=== PATIENT | male | born 1955 | race Two or more races ===

== ENCOUNTER 2016-11-08 11:46 | Day surgery (SDC) | payer OTHER ==
[2016-11-07 16:02] VITALS: BMI 30.8
[2016-11-08] VITALS (17 sets, daily range): BP systolic 121–147; BP diastolic 75–94; PULSE 63–78; RESP 8–29; Ht 172.7 cm; Wt 89.0 kg
[~2016-11-08] VITALS: Ht 172.7 cm; Wt 89.0 kg
[2016-11-08] MEDS ORDERED: FENTAnyl 50 MCG/ML VIAL IV PRN (12:00)
[2016-11-08] MEDS ORDERED: DIPHENHYDRAMINE 50 MG INJ IV PRN (12:00)
[2016-11-08] MEDS ORDERED: OXYCODONE/ACETAMINOPHEN (5/325) TAB PO PRN ×2 (12:00)
[2016-11-08] MEDS ORDERED: PROCHLORPERAZINE 10 MG INJ IV PRN (12:00)
[2016-11-08] MEDS ORDERED: KETOROLAC 30 MG INJ IV ONE (12:00)
[2016-11-08] MEDS ORDERED: MEPERIDINE 25 MG INJ IV PRN (12:00)
[2016-11-08] MEDS ORDERED: ONDANSETRON 4 MG INJ IV PRN (12:00)
[2016-11-08] MEDS ORDERED: ASPI-664 PO (12:23)
[2016-11-08] MEDS ORDERED: PRAV40TA76 PO (12:28)
[2016-11-08] MEDS ORDERED: LISI40TA9 PO (12:28)
[2016-11-08] MEDS ORDERED: OMEP20CA16 PO (12:29)
[2016-11-08] MEDS ORDERED: D-ME473S2 PO (12:29)
[2016-11-08] MEDS ORDERED: MIDAZOLAM 1 MG/ML 2 ML INJ ONE (12:57)
[2016-11-08 13:32] LABS: ADD SCAN DIFF NO
[2016-11-08 13:33] LABS: BASOPHILS % 0.5 % (0.0-2.0); EOSINOPHILS # 0.1 10^3/ul (0.0-0.5); EOSINOPHILS % 1.3 % (0.0-7.0); HEMATOCRIT 41.7 % (42.0-52.0); HEMOGLOBIN 14.6 g/dl (14.0-18.0); LYMPHOCYTES % 36.5 % (15.0-51.0); MEAN CORPUSCULAR HEMOGLOBIN 31.9 pg (29.0-33.0); MEAN CORPUSCULAR VOLUME 91.2 fl (82.0-101.0); MEAN PLATELET VOLUME 10.8 fl (7.4-10.4); MONOCYTE # 0.3 10^3/ul (0.3-0.9); NEUTROPHIL # 3.1 10^3/ul (1.6-7.5); NEUTROPHILS % 55.3 % (39.0-77.0); PLATELET COUNT 202 10^3/UL (140-415); RED BLOOD COUNT 4.57 10^6/ul (4.70-6.10); RED CELL DISTRIBUTION WIDTH 13.5 % (11.5-14.5); WHITE BLOOD COUNT 5.5 10^3/ul (4.8-10.8)
[2016-11-08 13:49] LABS: INR 0.92; PROTIME 12.4 Sec (12.2-14.2)
[2016-11-08 13:50] LABS: PARTIAL THROMBOPLASTIN TIME 29.2 Sec (25.0-35.0)
[2016-11-08 13:53] LABS: ALBUMIN 4.3 g/dl (3.3-4.9); ALBUMIN/GLOBULIN RATIO 1.59; BILIRUBIN,INDIRECT 0.4 mg/dl (0-1.1); BILIRUBIN,TOTAL 0.4 mg/dl (0.2-1.3)
[2016-11-08] MEDS ORDERED: SOD CHLORIDE 0.9% 1,000 ML IV SCH (14:00)
[2016-11-08] MEDS ORDERED: CEFAZOLIN 2 GM/50 ML (PMX) 50 ML IVPB ONE (14:00)
[2016-11-08 14:06] LABS: CALCIUM 8.8 mg/dl (8.4-10.2); CREATININE 0.78 mg/dl (0.61-1.24); POTASSIUM 3.9 mmol/L (3.5-5.1)
[2016-11-08] MEDS ORDERED: BUPIVACAINE 0.25% (MPF) 30 ML INJ ONE (15:01)
[2016-11-08] MEDS ORDERED: PROPOFOL 20 ML ONE (15:10)
[2016-11-08] MEDS ORDERED: LIDOCAINE 2% (SDV) 5 ML INJ ONE (15:10)
[2016-11-08] MEDS ORDERED: CEFAZOLIN 1 GM INJ ONE (15:16)
[2016-11-08] MEDS ORDERED: HYDROmorphONE 2 MG/ML SYG ONE (15:20)
[2016-11-08] MEDS ORDERED: METOCLOPRAMIDE 10 MG INJ ONE (15:24)
[2016-11-08] MEDS ORDERED: ONDANSETRON 4 MG INJ ONE (15:24)
[2016-11-08] MEDS ORDERED: EPHEDrine SULFATE 50 MG/5 ML SYG ONE (15:34)
--- NOTE | 2016-11-08 15:44 | OPR ---
Date/Time of Note Date/Time of Note DATE: 11/08/16 TIME: 15:43 Operative Report Procedure Date: Nov 08, 2016 Preoperative Diagnosis right arm tumor Postoperative Diagnosis same Operation Performed radical resection of right arm tumor with 15 x 10 cm tumor 11 cm incision localized adjacent transfer with the use of skin flaps 88 sq cm defect Surgeon: Cruz LEGGETT Specimens right arm tumor Cruz LEGGETT Nov 08, 2016 15:44
[2016-11-08] MEDS ORDERED: HYDROCODONE/APAP (5/325) TAB PO ONE (16:00)
--- NOTE | 2016-11-08 16:11 | OPR ---
DATE OF OPERATION: 11/08/2016 INDICATION: This is a 61-year-old male with a very large right arm tumor. He requests surgical exc ision. The risks, alternatives, benefits, and personnel were discussed with the patient. The patie nt expressed understanding and consented to the operation. PREOPERATIVE DIAGNOSIS: Right arm tumor. POSTOPERATIVE DIAGNOSIS: Right arm tumor. OPERATION PERFORMED: 1. Radical resection of right arm tumor with a 15 x 10-cm size tumor and an 11-cm size incision. 2. Localized adjacent tissue transfer with the use of skin flaps, with an 88-square cm defect. SURGEON: Landen Cagle MD SPECIMEN: Right arm tumor. COMPLICATIONS: None. ANESTHESIA: General. DESCRIPTION OF PROCEDURE: The patient was taken to the OR and prepped and draped in the usual steri le fashion. A surgical timeout was performed. IV antibiotics were given. A transverse incision wa s made with a 15 blade over the right arm tumor. Dissection cautery was carried down to the tumor a nd circumferentially around the tumor, which reached all the way down to the right arm muscle layer, there was good hemostasis. Due to the large tissue defect, a localized adjacent tissue transfer wi th the use of skin flaps was performed. Multilevel closure with interrupted 3-0 Vicryl and skin sta ples. Local anesthesia was injected. Dry dressings were applied. Dictated By: LANDEN TOLBERT/FABIANO Conf#: [id number] DID#: [id number]
--- NOTE | 2016-11-08 17:46 | RADRPT ---
Vent Rate: 60 bpm RR Interval: 0 msec RI Interval: 158 msec QRS Duration: 86 msec QT Interval: 428 msec QTC Interval: 428 msec P-R-T [place]: 42 - -6 - -52 degrees Normal sinus rhythm ST and T wave abnormality, consider anterior ischemia Abnormal ECG Electronically Signed By: Kimani Torres [id number]
== END 2016-11-08 17:36 | disposition home or self-care (01) ==
LOC: SDS 11:46
PROVIDERS: ATTEND Surgery
DX: D17.21 Benign lipomatous neoplasm of skin and subcutaneous tissue of right arm (principal); I10 Essential (primary) hypertension; E78.5 Hyperlipidemia, unspecified; E11.9 Type 2 diabetes mellitus without complications; E66.9 Obesity, unspecified; Z68.30 Body mass index [BMI] 30.0-30.9, adult
CPT/HCPCS: 14301; 14302; 80053; 85025; 85610; 85730; 88307; 93005; J0690; J1170; J2250; J2405; J2765; Z7512; Z7610

== ENCOUNTER 2018-08-10 15:30 | Emergency (ER) | payer SELFPAY ==
[~2018-08-10] VITALS: Ht 172.7 cm; Wt 96.0 kg
[~2018-08-10 15:30] MED LIST: ASPI-817 PO; D-ME473S2 PO; LISI40TA3 PO; OMEP20CA16 PO; PRAV40TA76 PO
[2018-08-10 15:33] VITALS: Ht 172.7 cm; Wt 96.0 kg
[2018-08-10] MEDS ORDERED: HYDROCODONE/APAP (5/325) TAB PO ONE (17:00)
[2018-08-10] MEDS ORDERED: DIPHTH/TET/ACEL PERTUSS (ADULT) 0.5 ML VIAL IM* ONE (18:30)
[2018-08-10] MEDS ORDERED: ACET500C5 PO (18:36)
[2018-08-10] MEDS ORDERED: CEPH-443 PO (18:38)
[2018-08-10 18:45] VITALS: BP 159/92; PULSE 88; RESP 16
--- NOTE | 2018-08-10 19:39 | ERD ---
ER Documentation Chief Complaint Chief Complaint L lateral pinky laceration 1 wk ago HPI 62-year-old male patient with a past medical history of hypertension, hyperlipidemia presents to ED complaining of a laceration sustained on his left lateral pinky finger about 1 week ago. States that he was trying to fix his car under the [place], actually cut himself with a metal piece. Reports he is unsure if he is up-to-date with his tetanus vaccine. Denies any fever, loss of sensation, loss of range of motion, nausea, vomiting, chills, increased redness or swelling. Patient is right-handed. ROS All systems reviewed and are negative except as per history of present illness. Medications Home Meds Active Scripts Cephalexin* (Keflex*) 500 Mg Capsule, 500 MG PO QID for 7 Days, CAP Prov:LAN WATSON PA-C 08/10/18 Acetaminophen* (Tylophen*) 500 Mg Capsule, 1 CAP PO Q6H PRN for PAIN AND OR ELEVATED TEMP, #20 CAP Prov:LAN WATSON PA-C 08/10/18 Reported Medications Dextromethorphan Hb-Promethazine Hcl* (Promethazine DM* Syrup) 473 Ml Syrup, 5 ML PO Q6 PRN for COUGH, ML 11/08/16 Omeprazole* (Omeprazole*) 20 Mg Capsule.dr, 20 MG PO DAILY, #30 CAP 11/08/16 Lisinopril* (Lisinopril*) 40 Mg Tablet, 40 MG PO DAILY, #30 TAB 11/08/16 Pravastatin Sodium* (Pravastatin Sodium*) 40 Mg Tablet, 40 MG PO HS, TAB 11/08/16 Aspirin* (Aspirin* EC) 81 Mg Tablet.dr, 81 MG PO DAILY, TAB 11/08/16 Allergies Allergies: Coded Allergies: No Known Drug Allergies (Unverified Allergy, Unknown, 11/07/16) PMhx/Soc History of Surgery: Yes (RIGHT HAND SX ) Anesthesia Reaction: No Hx Neurological Disorder: No Hx Respiratory Disorders: No Hx Cardiac Disorders: Yes (HTN) Hx Psychiatric Problems: No Hx Miscellaneous Medical Probl: Yes Hx Alcohol Use: Yes Hx Substance Use: Yes Hx Tobacco Use: Yes Smoking Status: Current every day smoker FmHx Family History: No diabetes, No coronary disease Physical Exam Vitals Vital Signs Date Temp Pulse Resp B/P (MAP) Pulse Ox O2 O2 Flow FiO2 Time Delivery Rate 08/10/18 98.4 89 18 178/105 98 15:33 (129) Physical Exam Const: [id number], well-nourished. In no acute distress. Head: Atraumatic, normocephalic Eyes: Normal Conjunctiva without injection ENT: Normal external ear, nose and mouth. Neck: Full range of motion. No meningismus. Resp: Clear to auscultation bilaterally. No wheezing, rhonchi, rales, or crackles. No accessory muscle use. No retractions. Cardio: Regular rate and rhythm, no murmurs Skin: No petechiae or rashes Back: No midline tenderness. No CVA tenderness. Ext: No cyanosis, or edema. Cap refill less than 2 seconds. Distal pulses intact bilaterally. 3 cm skin avulsion noted on the lateral dorsal aspect of patient's left pinky, fifth finger. Full range of motion of the DIP, PIP, MCP joints bilaterally. Neur: Awake and alert. Normal gait and coordination. Muscle strength 5/5. Sensation intact bilaterally. Psych: Normal Mood and Affect Results 24 hrs Current Medications Medications Dose Sig/Margarita Start Time Status Last (Trade) Ordered Route PRN Stop Time Admin Dose Reason Admin 1 tab ONCE ONCE 08/10/18 DC 08/10/18 Acetaminophen PO 17:00 08/10/18 17:10 / 17:01 Hydrocodone Bitart (Agency (5/325)) Diphtheria/ 0.5 ml ONCE ONCE 08/10/18 DC 08/10/18 Tetanus/Acell IM* 18:30 08/10/18 18:25 Pertussis 18:31 (Adacel) Procedures/MDM 62-year-old male patient with a past medical history of hypertension, hyperlipid emia presents to ED complaining of left pinky skin avulsion that started 1 week ago after fixing his car. Patient is afebrile and nontoxic-appearing. Patient's blood pressure is 178/105. Blood Pressure Assessment: Patient's blood pressure was elevated (>120/80) but appears stable without evidence of hypertension emergency or urgency. The patient was counseled about the risks of hypertension and urged to pursue outpatient monitoring and therapy within a week with their primary care physician. After treating patient's pain with Agency 5- 325 mg, 159/92 with patient's new blood pressure. Patient gave consent to perform laceration repair. Laceration Repair by me: Anesthesia: None Location: [Left 5th pinky finger] Tendon/Joint/Nerves: No injury Foreign body: None detected after copious irrigation and exploration Technique: Dermabond on the distal are where epidermis was still able to approximate Complexity: No subcutaneous sutures/mucosal repair/edge excision Post Closure Length: [3] cm Patient's bleeding was easily controlled in the department and there is no indication of anemia. Tdap updated. Patient is neurovascularly intact. No evidence of compartment syndrome, neurologic injury, vascular injury, open joint, tendon laceration, or foreign body. Patient is appropriate for outpatient follow up. 48 hour wound check. Scar minimization instructions given. Keflex was prescribed to patient for infection prevention. Instructed patient to return to the ED sooner for any worsening symptoms. Follow up with primary care physician in 1-2 days. Patient's questions were answered. Patient understood and agreed with discharge plan. Departure Diagnosis: Primary Impression: Finger laceration Encounter type: initial encounter Finger: unspecified finger Damage to nail status: unspecified Foreign body presence: unspecified Laterality: left Qualified Codes: S61.219A - Laceration without foreign body of unspecified finger without damage to nail, initial encounter Condition: Stable Patient Instructions: Laceration, Hand, Laceration, Extremity (Skin Glue), Skin Avulsion Referrals: [facility] [place] YOU HAVE RECEIVED A MEDICAL SCREENING EXAM AND THE RESULTS INDICATE THAT YOU DO NOT HAVE A CONDITION THAT REQUIRES URGENT TREATMENT IN THE EMERGENCY DEPARTMENT. FURTHER EVALUATION AND TREATMENT OF YOUR CONDITION CAN WAIT UNTIL YOU ARE SEEN IN YOUR DOCTORS OFFICE WITHIN THE NEXT 1-2 DAYS. IT IS YOUR RESPONSIBILITY TO MAKE AN APPOINTMENT FOR FOL- CARE. IF YOU HAVE A PRIMARY DOCTOR --you should call your primary doctor and schedule an appointment IF YOU DO NOT HAVE A PRIMARY DOCTOR YOU CAN CALL OUR PHYSICIAN REFERRAL HOTLINE AT IF YOU CAN NOT AFFORD TO SEE A PHYSICIAN YOU CAN CHOSE FROM THE FOLLOWING [facility] CLINICS [facility] [address] [facility] [address] [facility] [address] [facility] [address] [facility] [address] [facility]. [facility] [address] [facility]. [facility] YOU HAVE RECEIVED A MEDICAL SCREENING EXAM AND THE RESULTS INDICATE THAT YOU DO NOT HAVE A CONDITION THAT REQUIRES URGENT TREATMENT IN THE EMERGENCY DEPARTMENT. FURTHER EVALUATION AND TREATMENT OF YOUR CONDITION CAN WAIT UNTIL YOU ARE SEEN IN YOUR DOCTORS OFFICE WITHIN THE NEXT 1-2 DAYS. IT IS YOUR RESPONSIBILITY TO MAKE AN APPOINTMENT FOR FOLOW-UP CARE. IF YOU HAVE A PRIMARY DOCTOR --you should call your primary doctor and schedule and appointment IF YOU DO NOT HAVE A PRIMARY DOCTOR YOU CAN CALL OUR PHYSICIAN REFERRAL HOTLINE AT . IF YOU CAN NOT AFFORD TO SEE A PHYSICIAN YOU CAN CHOSE FROM THE FOLLOWING [facility] INSTITUTIONS: [facility] [address] [place] [address] [facility] [address] [place], [place] [id number] [place] [address] + [facility] [address] [place] [address] [facility]CIALT[facility] Additional Instructions: Llame al doctor MAANA y steven bunny ARMAND PARA DENTRO DE 2-3 NELSON.Dgale a la secretaria que nosotros le instruimos hacer esta armand.Avise o llame si verma condicin se empeora antes de la armand. Regresa aqui si peor o no mejor. WOUND CHECK:CONSULTE A VERMA MDICO EN 2 goldman para guille VERMA HERIDA. LAN WATSON PA-C Aug 10, 2018 18:52
== END 2018-08-10 18:45 | disposition home or self-care (01) ==
LOC: FTE 15:30
DX: S61.217A Laceration without foreign body of left little finger without damage to nail, initial encounter (principal); I10 Essential (primary) hypertension; F17.210 Nicotine dependence, cigarettes, uncomplicated; W26.8XXA Contact with other sharp object(s), not elsewhere classified, initial encounter; Y92.89 Other specified places as the place of occurrence of the external cause; Z23 Encounter for immunization; Z79.82 Long term (current) use of aspirin
CPT/HCPCS: 90471; 90715